=== PATIENT | male | born 2000 | race Caucasian/White ===

== ENCOUNTER 2024-06-07 00:40 | Emergency (ER) | payer OTHER ==
[~2024-06-07] VITALS: Ht 172.7 cm; Wt 81.8 kg
[2024-06-07 00:54] VITALS: BP 124/71; PULSE 60; RESP 16; TEMP 98.2; O2SAT 100
[2024-06-07] MEDS: LIDOCAINE 1% 10 ML VIAL SQ ONE (01:54)
[2024-06-07] MEDS: BACITRACIN 0.9 GM PACKET OINTMENT TP ONE (01:55)
[2024-06-07] MEDS: SULFAMETHOX/TRIMETH DS 800-160 MG/TABLET PO ONE (01:55)
[2024-06-07] MEDS: CEPHALEXIN MONOHYDRATE 500 MG CAPSULE PO ONE (01:55)
[2024-06-07] MEDS ORDERED: DOXY-354 PO (02:16)
[2024-06-07] MEDS ORDERED: CEPH-558 PO (02:16)
== END 2024-06-07 02:23 | disposition home or self-care (01) ==
LOC: EMS 00:40
DX: L60.0 Ingrowing nail (principal)
CPT/HCPCS: 99284; 11730; J3490